=== PATIENT | male | born 1990 | race Caucasian/White ===

== ENCOUNTER 2016-08-11 00:31 | Emergency (ER) | payer BC ==
[~2016-08-11] VITALS: Ht 182.8 cm; Wt 77.1 kg
[~2016-08-11 00:31] MED LIST: CIPRO500 MG PO; VICODIN 5/500 505 MG PO; VICODIN ES 7501 TAB PO
[2016-08-11 01:02] LABS: BILIRUBIN NEGATIVE (NEGATIVE); BLOOD TRACE-LYSED (NEGATIVE); CLARITY CLEAR (CLEAR); COLOR YELLOW (YELLOW); GLUCOSE NEGATIVE (NEGATIVE); KETONE 1+ (NEGATIVE); LEUKO ESTERASE NEGATIVE (NEGATIVE); NITRITE NEGATIVE (NEGATIVE); PROTEIN NEGATIVE (NEGATIVE); UROBILINOGEN 0.2 E.U./dl (0.2-1.0)
[2016-08-11 01:12] LABS: BACTERIA TRACE; EPITHELIAL CELLS 0-2; URINE REFLEX COMMENT YES (NO)
== END 2016-08-11 01:51 | disposition home or self-care (01) ==
LOC: ED 00:31
PROVIDERS: Physician Assistant
DX: A64 Unspecified sexually transmitted disease (principal)

== ENCOUNTER 2016-11-17 19:58 | Emergency (ER) | payer BC ==
[~2016-11-17] VITALS: Ht 180.3 cm; Wt 77.1 kg
[2016-11-17 21:25] LABS: BILIRUBIN NEGATIVE (NEGATIVE); BLOOD 3+ (NEGATIVE); CLARITY TURBID (CLEAR); COLOR RED (YELLOW); GLUCOSE TRACE (NEGATIVE); KETONE 1+ (NEGATIVE); NITRITE POSITIVE (NEGATIVE); PH 7.5 (5.0-9.0); PROTEIN 3+ (NEGATIVE); SPECIFIC GRAVITY 1.015 (1.005-1.030)
[2016-11-17 21:26] LABS: LEUKO ESTERASE 2+ (NEGATIVE)
[2016-11-17 21:40] LABS: RBC TNTC rbc/hpf (0-2); URINE REFLEX COMMENT YES (NO)
[2016-11-17] MEDS ORDERED: BACTRIM DS 8001 TA1 PO (21:44)
[2016-11-17] MEDS ORDERED: CIPRO500 MG PO (21:52)
== END 2016-11-17 22:30 | disposition home or self-care (01) ==
LOC: ED 19:58
PROVIDERS: Emergency Medicine Emergency Medical Services
DX: R33.9 Retention of urine, unspecified (principal); N39.0 Urinary tract infection, site not specified; Z98.890 Other specified postprocedural states

== ENCOUNTER 2019-03-06 16:31 | Emergency (ER) | payer BC ==
[~2019-03-06] VITALS: Ht 182.8 cm; Wt 81.6 kg
[~2019-03-06 16:31] MED LIST changes: +BACTRIM DS 8001 TA1 PO
[2019-03-06 16:55] LABS: BILIRUBIN NEGATIVE (NEGATIVE); BLOOD TRACE-INTACT (NEGATIVE); CLARITY CLEAR (CLEAR); COLOR YELLOW (YELLOW); GLUCOSE NEGATIVE (NEGATIVE); KETONE NEGATIVE (NEGATIVE); LEUKO ESTERASE NEGATIVE (NEGATIVE); NITRITE NEGATIVE (NEGATIVE); UROBILINOGEN 0.2 E.U./dl (0.2-1.0)
[2019-03-06 17:04] LABS: RBC 0-2 rbc/hpf (0-2); WBC 0-2 wbc/hpf (0-5)
[2019-03-06 17:13] LABS: BASO # 0.1 10*3/uL (0.0-0.1); BASO % 1.1 % (0.0-1.0); EOS % 0.6 % (1.0-4.0); HEMATOCRIT 43.8 % (42.0-52.0); HEMOGLOBIN 14.6 g/dl (14.0-18.0); LYMPH # 1.4 10*3/uL (1.3-4.4); LYMPH % 21.7 % (27.0-41.0); MEAN CELL VOLUME 90.3 fl (80.0-94.0); MEAN CORPUSCULAR HGB 30.1 pg (27.0-31.0); MEAN CORPUSCULAR HGB CONC 33.3 g/dl (33.0-37.0); MEAN PLATELET VOLUME 9.5 fl (9.6-12.3); MONO # 0.8 10*3/uL (0.1-1.0); MONO % 12.2 % (3.0-9.0); NEUT # 4.2 10*3/uL (2.3-7.9); NEUT % 64.1 % (47.0-73.0); PLATELET COUNT AUTOMATED 234 10*3/uL (130-400); RED BLOOD COUNT 4.85 10*6/uL (4.50-5.90); RED CELL DISTRI WIDTH 11.8 % (0-14.5); WHITE BLOOD COUNT 6.6 10*3/uL (4.8-10.8)
[2019-03-06 17:31] LABS: ALBUMIN 4.1 gm/dl (3.1-4.5); BUN 23 mg/dl (7-24); CHLORIDE 107 mmol/L (98-107); CREATININE 1.24 mg/dL (0.70-1.30); POTASSIUM 3.9 mmol/L (3.5-5.1); SGOT/AST 23 IU/L (3-35); SGPT/ALT 32 U/L (12-78); SODIUM 138 mmol/L (136-145); TOTAL PROTEIN 7.9 gm/dL (6.4-8.2)
[2019-03-06 17:31] LABS: URINE AMPHETAMINES < 1000 (1000ng/ml); URINE BARBITURATES < 200 (200ng/ml); URINE BENZODIAZEPINES < 200 (200ng/ml); URINE CANNABINOIDS (THC) < 50 (50ng/ml); URINE COCAINE < 300 (300ng/ml); URINE METHADONE < 300 (300ng/ml); URINE OPIATES < 300 (300ng/ml)
[2019-03-06 17:33] LABS: ALKALINE PHOSPHATASE 66 U/L (45-117)
[2019-03-06 17:33] LABS: URINE PHENCYCLIDINE < 25 (25ng/ml)
[2019-03-06] MEDS ORDERED: FLOMAX0.4 MG PO (17:43)
[2019-03-06] MEDS ORDERED: PYRIDIUM200 M1 PO (17:43)
== END 2019-03-06 18:07 | disposition home or self-care (01) ==
LOC: ED 16:31
PROVIDERS: Emergency Medicine
DX: R33.9 Retention of urine, unspecified (principal); Z87.440 Personal history of urinary (tract) infections

== ENCOUNTER 2021-06-20 12:11 | Emergency (ER) | payer BC ==
[~2021-06-20] VITALS: Wt 104.3 kg
[~2021-06-20 12:11] MED LIST changes: +FLOMAX0.4 MG PO; +PYRIDIUM200 M1 PO
== END 2021-06-20 15:07 | disposition home or self-care (01) ==
LOC: ED 12:11
DX: S90.31XA Contusion of right foot, initial encounter (principal); W20.8XXA Other cause of strike by thrown, projected or falling object, initial encounter; Y93.89 Activity, other specified; Y92.89 Other specified places as the place of occurrence of the external cause; Y99.8 Other external cause status

== ENCOUNTER 2022-09-29 14:04 | Emergency (ER) | payer OTHER ==
[~2022-09-29] VITALS: Ht 182.8 cm; Wt 95.3 kg
[2022-09-29] MEDS ORDERED: SEPTDS PO (15:49)
== END 2022-09-29 16:26 | disposition home or self-care (01) ==
LOC: ED 14:04
DX: L03.116 Cellulitis of left lower limb (principal)